=== PATIENT | male | born 1980 | race Caucasian/White ===

== ENCOUNTER 2021-09-12 11:52 | Outpatient (CLI) | payer BC, SELFPAY ==
[2021-09-13 16:43] LABS: COVID-19 RT-PCR UVMMC Result Negative (Negative)
== END 2021-09-12 11:53 | disposition home or self-care (01) ==
LOC: LBO 11:55
PROVIDERS: Visit Provider Nurse Practitioner Family
DX: Z20.822 Contact with and (suspected) exposure to COVID-19 (principal)
CPT/HCPCS: U0003

== ENCOUNTER 2024-07-13 15:03 | Outpatient (REF) | payer BC, SELFPAY ==
[2024-07-13 22:42] LABS: ALT 51 U/L (16-63); AST 33 U/L (15-37); Albumin 3.7 g/dL (3.4-5.0); Alkaline Phosphatase 38 U/L (46-116); Bilirubin, Direct 0.2 mg/dL (0.0-0.2); Bilirubin, Total 0.56 mg/dL (0.2-1.0); Total Protein 6.5 g/dL (6.4-8.2)
[2024-07-14 19:04] LABS: HBs Antibody, Quant 25.7 mIU/mL (See Note); Hepatitis B Surface Ab Positive (See Note)
[2024-07-14 19:43] LABS: HIV-1/2 Ag & Ab Screen Negative (Negative)
[2024-07-14 19:47] LABS: Hep B Core Antibody Negative (Negative)
[2024-07-14 19:50] LABS: Hepatitis C Ab w Rflx HCV PCR Negative (Negative)
== END 2024-07-13 15:04 | disposition home or self-care (01) ==
LOC: NCHCN 15:03
PROVIDERS: Visit Provider Family Medicine
DX: Z51.81 Encounter for therapeutic drug level monitoring (principal)
CPT/HCPCS: 80076; 86704; 86706; 86803; 87389

== ENCOUNTER 2025-04-05 10:21 | Outpatient (CLI) | payer BC, SELFPAY ==
[2025-04-05 11:41] LABS: ALT 50 U/L (16-63); AST 38 U/L (15-37); Albumin 3.9 g/dL (3.4-5.0); Alkaline Phosphatase 33 U/L (46-116); Bilirubin, Direct 0.1 mg/dL (0.0-0.2); Bilirubin, Total 0.6 mg/dL (0.2-1.0); Total Protein 6.6 g/dL (6.4-8.2)
[2025-04-05 18:38] LABS: PSA, Screening 0.6 ng/mL (<=2.5)
[2025-04-12 23:28] LABS: Testosterone, Free 351.8 pg/mL (35.0-155.0)
== END 2025-04-05 10:22 | disposition home or self-care (01) ==
LOC: LBO 10:22
PROVIDERS: Visit Provider Family Medicine
DX: E29.1 Testicular hypofunction (principal); F11.21 Opioid dependence, in remission
CPT/HCPCS: 36415; 80076; 84153; 84402